=== PATIENT | female | born 1970 | race African-American/Black ===

== ENCOUNTER 2023-07-10 10:27 | Day surgery (SDC) | payer OTHER ==
[2023-07-01 13:22] VITALS: BMI 23.3
[2023-07-10] MEDS ORDERED: LIDOCAINE HCL/PF 2% SDV 5ML VIAL ONE (11:53)
[2023-07-10 11:57] VITALS: TEMP 97.6
[2023-07-10 12:14] VITALS: BP 115/68; PULSE 80; RESP 16
== END 2023-07-10 12:21 | disposition home or self-care (01) ==
LOC: FASU-ENDO 10:27
PROVIDERS: ATTEND Internal Medicine Gastroenterology
PROC: 0DJD8ZZ Inspection of Lower Intestinal Tract, Via Natural or Artificial Opening Endoscopic (ICD-10-PCS; principal; 2023-07-10 11:29)
DX: Z12.11 Encounter for screening for malignant neoplasm of colon (principal); K64.1 Second degree hemorrhoids
CPT/HCPCS: 81025